=== PATIENT | male | born 1985 | race Hispanic/Latino ===

== ENCOUNTER 2018-03-01 08:17 | Emergency (ER) | payer OTHER ==
[~2018-03-01] VITALS: Ht 165.1 cm; Wt 63.5 kg
[2018-03-01 08:53] LABS: ABSOLUTE BASOPHIL COUNT 0 /CUMM (0.0-0.2); ABSOLUTE EOSINOPHIL COUNT 0.1 /CUMM (0.0-0.7); ABSOLUTE GRANULOCYTE CT 2.4 /CUMM (1.4-6.5); ABSOLUTE LYMPH COUNT 3.2 /CUMM (1.2-3.4); ABSOLUTE MONOCYTE COUNT 0.7 /CUMM (0.10-0.60); BASOPHIL % 0.5 % (0.0-2.0); EOSINOPHIL % 1.5 % (0-5); GRANULOCYTE % 37.3 % (42.2-75.2); HEMATOCRIT 45.4 % (42-52); MEAN CORPUSCULAR HGB 31.2 PG (27.0-31.0); MEAN CORPUSCULAR HGB CONC 33.7 G/DL (33.0-37.0); MEAN CORPUSCULAR VOLUME 92.4 FL (80.0-94.0); MEAN PLATELET VOLUME 7.4 FL (7.4-10.4); PLATELET COUNT 220 /CUMM (130-400); RBC DISTRIBUTION WIDTH 13.4 % (11.5-14.5); RED BLOOD CELL CT 4.92 /CUMM (4.70-6.10); WHITE BLOOD CELL COUNT 6.5 /CUMM (4.8-10.8)
--- NOTE | 2018-03-01 09:20 | ED PSYCHIATRIC COMPLAINT ---
History of Present Illness General Chief Complaint: Nausea, Vomiting, Diarrhea Stated Complaint: NVD Source: patient, old records Exam Limitations: no limitations Vital Signs & Intake/Output Vital Signs & Intake/Output Vital Signs Date Time Temp Pulse Resp B/P B/P Pulse O2 O2 Flow FiO2 Mean Ox Delivery Rate 03/01 1623 98.9 79 20 136/84 96 03/01 1327 98.0 100 18 136/68 98 Room Air 03/01 1315 98.0 100 18 136/68 03/01 1102 97.0 84 18 137/88 98 Room Air Room Air 03/01 1100 97.0 84 18 137/88 03/01 1000 97.9 110 18 156/111 03/01 0823 97.9 110 18 156/111 96 Room Air Allergies Coded Allergies: No Known Allergies (03/01/18) Triage Note: PT STATES HE HAS BEEN HAVING N/V/D PT HAS NOT EATEN IN THREE DAYS STATES HIS FIANCE LEFT HIM AND HE HAS BEEN BINGE DRINKING. PT ADMITS TO BEING AN ALCHOLIC. PT STATES HE WOULD LIKE HELP WITH HIS DRINKING PROBLEM. PT LAST DRANK THIS AM STATES HE HAD A BEER. PT ADMITS TO DRINKING 40 OZ OF BEER AND 2 SHOTS OF ETOH. PT ADMITS TO SMOKING "WEED". PT STATES "I NEED HELP" PT DENIES SI/HI AT THIS TIME. PT CRYING IN TRIAGE. Triage Nurses Notes Reviewed? yes HPI: 32M no PMH presents with fatigue, weakness, agitation, and tremors. He reports binge drinking every day for the past 9 years, usually consisting of a 40 oz beer and a few nips. His drinking has worsened over the past week after he lost his fiancee, and he has been drinking nearly constantly, last drink was a beer this morning at 7am. He has had poor nutrition the past few days, barely eating. He feels dehydrated and weak, and is asking for help. He is afraid of going home and continuing drinking. He denies SI/HI, and reports he loves life, and just wants to get better. No drug use. No history of mental illness. Past History Travel History Traveled to [place] past 21 day No Medical History Any Pertinent Medical History? see below for history Psychiatric: alcohol dependence Surgical History Surgical History: non-contributory Psychosocial History What is your primary language Macedonian Tobacco Use: Current Daily Use Daily Tobacco Use Amount/Type: => 5 Cigarettes daily ETOH Use: alcoholic Illicit Drug Use: marijuana Family History Hx Contributory? No Review of Systems Review of Systems Constitutional: Reports: no symptoms. EENTM: Reports: no symptoms. Respiratory: Reports: no symptoms. Cardiovascular: Reports: no symptoms. GI: Reports: no symptoms. Genitourinary: Reports: no symptoms. Musculoskeletal: Reports: no symptoms. Skin: Reports: no symptoms. Neurological/Psychological: Reports: no symptoms. Hematologic/Endocrine: Reports: no symptoms. Immunologic/Allergic: Reports: no symptoms. All Other Systems: Reviewed and Negative Physical Exam Physical Exam General Appearance: well developed/nourished, mild distress, tremulous Head: atraumatic Eyes: Bilateral: normal appearance, PERRL, EOMI. Ears, Nose, Throat: hearing grossly normal, dry mucous membranes, +tongue fasciculations Neck: normal inspection, supple Respiratory: normal breath sounds Cardiovascular: regular rate/rhythm Gastrointestinal: soft, non-tender Extremities: normal range of motion Neurological/Psychiatric: awake, agitated Appearance/Memory/Insight: appropriate appearance, appropriate insight Behavoir/Eye Contact/Speech: cooperative, normal speech, good eye contact Thoughts/Hallucinations: normal thought pattern, no apparent hallucination Skin: intact, normal color, warm/dry SAD PERSONS Done? patient not suicidal Progress Differential Diagnosis: drug intoxication, drug overdose, drug withdrawal, electrolyte abnormality, encephalitis, hypoglycemia, hypothyroidism, IC hem/mass /tumor, meningitis Plan of Care: Orders Procedure Date/time Status Regular Diet 03/01 L Active URINE DRUG SCREEN FOR ER ONLY 03/01 830 Complete ETHANOL 03/01 830 Complete COMPREHENSIVE METABOLIC PANEL 03/01 830 Complete CBC WITHOUT DIFFERENTIAL 03/01 830 Complete Laboratory Tests 03/01/18 1131: Urine Opiates Screen < 100, Methadone Screen < 40, Barbiturate Screen < 60, Ur Phencyclidine Scrn < 6.00, Amphetamines Screen < 100, U Benzodiazepines Scrn < 85, Urine Cocaine Screen < 50, Urine Cannabis Screen > 80.00 H 03/01/18 0842: Anion Gap 18 H, Estimated GFR > 60, BUN/Creatinine Ratio 8.6, Glucose 100 H, Calcium 9.2, Total Bilirubin 0.7, AST 303 H, ALT 214 H, Alkaline Phosphatase 102, Total Protein 8.2, Albumin 5.1 H, Globulin 3.1, Albumin/Globulin Ratio 1.6 , CBC w Diff NO MAN DIFF REQ, RBC 4.92, MCV 92.4, MCH 31.2 H, MCHC 33.7, RDW 13.4, MPV 7.4, Gran % 37.3 L, Lymphocytes % 49.4, Monocytes % 11.3 H, Eosinophils % 1.5, Basophils % 0.5, Absolute Granulocytes 2.4, Absolute Lymphocytes 3.2, Absolute Monocytes 0.7 H, Absolute Eosinophils 0.1, Absolute Basophils 0, Serum Alcohol 346.0 Patient is greatly improved. He is awake, alert and cooperative. He feels well and is not agitated. He is not tremulous, no tongue fasciculations, normal vitals, no evidence of withdrawal. He again denies SI/HI. He has good insight and judgment. He will be discharged home. He has been given a list of alcohol detox centers nearby. Departure Departure Disposition: HOME OR SELF CARE Condition: Stable Clinical Impression Primary Impression: Alcohol intoxication Secondary Impressions: Depression Referrals: Patient Has No Primary Care Dr (PCP/Family) Additional Instructions: Follow up with your PCP. Follow up with an alcohol center in the list provided. Abstain from drinking alcohol. Drink plenty of water. Return to ER if any new or worsening symptoms. Departure Forms: Customer Survey General Discharge Information
[2018-03-01 16:23] VITALS: BP 136/73
== END 2018-03-01 17:58 ==
LOC: ERH 08:17
PROVIDERS: Emergency Medicine
DX: F10.129 Alcohol abuse with intoxication, unspecified (principal); F32.9 Major depressive disorder, single episode, unspecified
CPT/HCPCS: 80307; 96361; 96374; G0480